=== PATIENT | female | born 1965 | race Caucasian/White ===

== ENCOUNTER → 2020-04-26 | Outpatient (CLI) | payer BC ==
--- NOTE | 2020-04-26 12:55 | REP ---
INDICATION: PAIN AFTER FALL COMPARISON: None. TECHNIQUE: AP, lateral, bilateral oblique views left wrist. FINDINGS: The carpal bones, surrounding osseous structures, soft tissues, and joint spaces are normal. There is no evidence for acute fracture or dislocation. No subcutaneous emphysema or radiodense foreign body. IMPRESSION: No acute fracture or dislocation. <Electronically signed by Vimal Guzman > 04/26/20 [id number]
--- NOTE | 2020-04-26 12:56 | REP ---
INDICATION: FALL COMPARISON: None. TECHNIQUE: AP, lateral, bilateral oblique views right ankle. FINDINGS: No acute fracture or dislocation. Skeletal structures and joint spaces demonstrate age-related degenerative changes. Ankle mortise appears stable. No subcutaneous emphysema or radiodense foreign body. IMPRESSION: Age-related changes. No acute fracture or dislocation appreciated. <Electronically signed by Vimal Guzman > 04/26/20 [id number]
--- NOTE | 2020-04-26 12:57 | REP ---
INDICATION: FALL COMPARISON: None. TECHNIQUE: AP and lateral views of the right tibia/fibula. FINDINGS: The osseous structures and joint spaces are intact and normal. There is no evidence for acute fracture or dislocation. Surrounding soft tissues are unremarkable. No subcutaneous emphysema or radiodense foreign body. IMPRESSION: No acute fracture or dislocation. <Electronically signed by Vimal Guzman > 04/26/20 [id number]
== END ==
LOC: M WUC 12:28
PROVIDERS: ATTEND Physician Assistant
DX: M19.071 Primary osteoarthritis, right ankle and foot (principal); W01.0XXA Fall on same level from slipping, tripping and stumbling without subsequent striking against object, initial encounter; X58.XXXA Exposure to other specified factors, initial encounter; Y92.9 Unspecified place or not applicable; Y99.9 Unspecified external cause status